=== PATIENT | female | born 1950 | race Caucasian/White ===

== ENCOUNTER → 2018-01-28 12:43 | Outpatient (CLI) | payer MEDICARE, SELFPAY ==
[2018-01-28 13:43] VITALS: BP 122/59; PULSE 68; RESP 18; TEMP 35.9; O2SAT 99; BMI 29.7
[2018-01-28] MEDS: Acetaminophen 325 MG Tablet 650 MG PO (14:02)
[2018-01-28 15:14] VITALS: BP 125/59; PULSE 64; RESP 16; TEMP 35.8; O2SAT 98
== END ==
PROVIDERS: Family Provider Family Medicine; PCP Family Medicine; Visit Provider Internal Medicine Hematology & Oncology
DX: Z51.89 Encounter for other specified aftercare (principal); D69.6 Thrombocytopenia, unspecified
CPT/HCPCS: 36430; 86644; 86900; 86965; J7040; P9037; A4216

== ENCOUNTER 2018-03-04 16:21 | Outpatient (CLI) | payer MEDICARE, SELFPAY ==
[2018-03-04 16:36] VITALS: BP 124/63; PULSE 109; RESP 18; TEMP 36.9; O2SAT 100
[2018-03-04] MEDS: Magnesium Sulfate 2 GM IV IV ×3 (17:10→19:59)
[2018-03-04] MEDS: 0.9% NaCl PICC Flush IV ×2 (17:13→21:10)
[2018-03-04 21:12] VITALS: BP 118/61; PULSE 95; RESP 18; TEMP 36.6; O2SAT 98
== END 2018-03-04 21:15 | disposition home or self-care (01) ==
LOC: MEDOUTP 16:25 → MS3 16:26
PROVIDERS: Family Provider Family Medicine; PCP Family Medicine; Visit Provider Internal Medicine Hematology & Oncology
DX: E83.42 Hypomagnesemia (principal)
CPT/HCPCS: 96365; 96366 ×3; A4216